=== PATIENT | male | born 1955 | race Caucasian/White ===

== ENCOUNTER → 2020-07-09 09:58 | Outpatient (BNVA) | payer MEDICARE, BC, SELFPAY | PROVIDERS: PCP Internal Medicine; Visit Provider Surgery | DX: K60.2 Anal fissure, unspecified (principal) | CPT/HCPCS: 99212; 99213 ==

== ENCOUNTER → 2020-11-14 14:03 | Outpatient (BNVA) | payer MEDICARE, BC, SELFPAY | PROVIDERS: PCP Internal Medicine; Visit Provider Surgery | DX: K64.9 Unspecified hemorrhoids (principal) | CPT/HCPCS: 46600; 99212 ==

== ENCOUNTER → 2021-01-03 14:50 | Outpatient (BNVA) | payer MEDICARE, BC, SELFPAY | PROVIDERS: PCP Internal Medicine; Visit Provider Urology | DX: N41.9 Inflammatory disease of prostate, unspecified (principal); N45.1 Epididymitis | CPT/HCPCS: 81002; 99212 ==

== ENCOUNTER → 2021-03-27 12:52 | Outpatient (BNVA) | payer MEDICARE, BC, SELFPAY | PROVIDERS: PCP Internal Medicine; Visit Provider Urology | DX: N40.1 Benign prostatic hyperplasia with lower urinary tract symptoms (principal); N13.8 Other obstructive and reflux uropathy | CPT/HCPCS: 99212 ==

== ENCOUNTER 2021-05-27 10:06 | Outpatient (REF) | payer MEDICARE, BC, SELFPAY ==
[2021-05-27 11:07] LABS: Hematocrit 42.2 % (42-52); Hemoglobin 13.2 g/dl (14.0-18.0); Mean Corpuscular HGB Conc 31.3 g/dl (31.0-36.0); Mean Corpuscular Volume 89.4 fL (80-98); Mean Platelet Volume 9.9 fL (9.4-12.4); Platelet Count 215 X10*3/uL (160-400); Red Blood Count 4.72 X10*6/uL (4.60-5.80); White Blood Count 7.3 X10*3/uL (4.8-10.8)
[2021-05-27 12:47] LABS: Prostate Specific Antigen 0.18 ng/mL (<0.05-4.0)
[2021-05-30 16:56] LABS: Testosterone, Total 87 ng/dL (250-1100)
== END 2021-05-27 10:07 | disposition home or self-care (01) ==
LOC: HO.LAB 10:06
PROVIDERS: PCP Internal Medicine; Visit Provider Urology
DX: Z12.5 Encounter for screening for malignant neoplasm of prostate (principal); N13.8 Other obstructive and reflux uropathy; N40.1 Benign prostatic hyperplasia with lower urinary tract symptoms; E29.1 Testicular hypofunction
CPT/HCPCS: 36415; 84153; 84403; 85027

== ENCOUNTER → 2021-07-15 11:58 | Outpatient (BNVA) | payer MEDICARE, BC, SELFPAY | PROVIDERS: PCP Internal Medicine; Visit Provider Urology | DX: Z13.89 Encounter for screening for other disorder (principal) | CPT/HCPCS: 99212 ==

== ENCOUNTER 2022-01-13 16:42 | Emergency (ER) | payer MEDICARE, BC, SELFPAY ==
[2022-01-13 16:50] VITALS: BP 139/78; PULSE 78; RESP 16; TEMP 36.4; O2SAT 95; BMI 33.9
[2022-01-13 17:08] LABS: MANUAL DIFF FLAG NO
[2022-01-13 17:16] LABS: Basophils Percent Auto 0.5 % (0-2); Eosinophils Absolute Auto 0.1 X10*3/uL (0.0-0.4); Eosinophils Percent Auto 1.8 % (0-4); Hematocrit 44.4 % (42.0-52.0); Imm Gran Abs Auto 0.11 X10*3/uL (0.00-0.03); Imm Gran Pct Auto 1.4 % (0.0-0.4); Lymphocytes Absolute Auto 2.2 X10*3/uL (1.2-4.9); Lymphocytes Percent Auto 29.2 % (20-40); Mean Corpuscular HGB Conc 31.5 g/dl (31.0-36.0); Mean Corpuscular Hemoglobin 27.7 pg (27.0-33.0); Mean Corpuscular Volume 87.7 fL (80.0-98.0); Mean Platelet Volume 9.5 fL (9.4-12.4); Monocytes Absolute Auto 0.6 X10*3/uL (0.1-1.2); Monocytes Percent Auto 7.7 % (2-11); Neutrophils Absolute Auto 4.6 x10*3/uL (2.0-8.3); Neutrophils Percent Auto 59.4 % (45-73); Platelet Count 232 X10*3/uL (160-400); Red Blood Count 5.06 X10*6/uL (4.60-5.80); Red Cell Distribution Width 13.8 % (11.0-16.0); White Blood Count 7.7 X10*3/uL (4.8-10.8)
[2022-01-13 17:19] LABS: Appearance Urine CLEAR; Color Urine YELLOW; Glucose Urine UA NEG (NEG); Leukocyte Esterase Urine 3+ (NEG); Nitrite Urine NEG (NEG); PH 6.5 (5.0-8.0); Specific Gravity - Urine 1.015 (1.005-1.025); UACC Culture Trigger YES; Urine Blood 2+ (NEG); Urine Ketones NEG (NEG); Urine Protein 1+ MG/DL (NEG-TRACE)
[2022-01-13 17:23] LABS: Anion Gap 12 (12-20); Blood Urea Nitrogen 17 mg/dL (9-16); Calcium 9.6 mg/dL (8.4-10.2); Carbon Dioxide 27 mmol/L (22-29); Chloride 106 mmol/L (96-108); Creatinine Clr Calc Pharmacy 85.1; Estimated Glomerular Filt Rate > 60; Glucose Random 133 mg/dL (60-115); Potassium 4.4 mmol/L (3.3-5.1); Sodium 141 mmol/L (135-145)
[2022-01-13 17:41] LABS: Bacteria Urine 3+ /LPF; Squamous Epithelial Cell Urine TRACE /LPF; WBC Urine 30-49 /HPF (0-4)
== END 2022-01-13 20:40 | disposition left against medical advice (07) ==
PROVIDERS: Emergency Provider Emergency Medicine; PCP Internal Medicine
DX: N23 Unspecified renal colic (principal); R30.0 Dysuria; Z79.899 Other long term (current) drug therapy
CPT/HCPCS: 36415; 80048; 81001; 85025; 87086; 99283

== ENCOUNTER 2023-07-15 12:44 | Outpatient (REF) | payer MEDICARE, BC, SELFPAY ==
--- NOTE | ~2023-07-15 | XR_ITS ---
EXAMINATION: XR SHOULDER, LEFT CLINICAL INFORMATION: Shoulder pain COMPARISON: None available. TECHNIQUE: AP external rotation, Grashey, scapular Y, and axillary views of the left shoulder. FINDINGS: Acromioclavicular joint space narrowing. Glenohumeral joint is maintained. No acute fracture or dislocation. Old left posterolateral rib fracture. XR/XR shoulder LT min 2V IMPRESSION: No acute bony pathology left shoulder.
== END 2023-07-15 12:45 | disposition home or self-care (01) ==
LOC: HO.HOSX 12:44
PROVIDERS: PCP Internal Medicine; Visit Provider Orthopaedic Surgery
DX: M25.512 Pain in left shoulder (principal); M75.102 Unspecified rotator cuff tear or rupture of left shoulder, not specified as traumatic
CPT/HCPCS: 20610; 73030; J1040

== ENCOUNTER 2023-07-15 13:27 | Outpatient (AMB) | payer MEDICARE, BC, SELFPAY ==
--- NOTE | 2023-07-15 13:27 | A.OFFVIS_ITS ---
Intake Vital Signs 07/15/23 13:28 Height 6 ft Weight 245 lb BMI 33.2 Intake Visit Reasons: OV - shoulder pain Intake Note: Manpreet is a 68 year old right hand dominant male who presents today with complaints of left shoulder pain. No injury but explains that this pain onset after weedwacking. Pain increased with all reaching motions, he has increased pain with more movement and he has been restricting motion due to pain. denies numbness and tingling. He is taking oxycodone but this is for kidney stones so he does not find much releif with. Injections done in the past in the right shoulder which were very helpful Allergies Iodinated Contrast Media [IV DYE, IODINE CONTAINING] Allergy (Intermediate, Verified 07/15/21 11:59) HIVES levofloxacin [From LEVAQUIN] Allergy (Intermediate, Verified 07/15/21 11:59) RASH diazepam [From VALIUM] Allergy (Mild, Verified 07/15/21 11:59) RASH Penicillins [PENICILLINS] Allergy (Mild, Verified 07/15/21 11:59) RASH amoxicillin Allergy (Unknown, Verified 07/15/21 11:59) rash bee pollen [BEE STINGS] Allergy (Unknown, Verified 07/15/21 11:59) HIVES penicillin V Allergy (Unknown, Verified 07/15/21 11:59) rash codeine [CODEINE] Adverse Reaction (Severe, Verified 07/15/21 11:59) HEADACHES cipro Allergy (Unknown, Uncoded 05/30/20 00:00) vmiting Codeine Phosphate Allergy (Unknown, Uncoded 05/30/20 00:00) severe headach IVP dye Allergy (Unknown, Uncoded 11/14/20 14:11) Unknown HPI OV - shoulder pain HPI Details 68-year-old right hand dominant male who presents in the office today, as a new patient, for an evaluation of left shoulder pain. The patient does not recall any injury to the left shoulder, but states the pain began after weed- whacking. He reports the pain increases with all reaching motions and excessive movement. He claims to have limited ROM due to pain. He denies numbness or tingling. He reports he is taking oxycodone for his kidney stones and does not find much relief from the left shoulder pain with this medication. [facility] Medical History Bleeding hemorrhoids Chronic back pain Fibromyalgia Hypercholesterolemia Hypogonadism Surgical History History of appendectomy History of cholecystectomy History of hemorrhoidectomy History of total right knee replacement Family History Mother History of skin cancer Social History Alcohol intake: never Review of Systems Const All systems reviewed & are unremarkable except as noted in HPI and below Physical Exam Vital Signs: BMI result Body Mass Index 33.2 Const General: cooperative and no acute distress Orientation/consciousness: patient oriented x3 Resp Effort & Inspection: normal respiratory effort and able to speak in complete sentences Cardio Peripheral pulses: Peripheral pulses 2+ throughout Skin General skin exam: no rashes or lesions noted Neuro General: patient oriented x3 Extrem Other: Left shoulder: Full shoulder ROM in all planes. Pain with cross-body reach. 4/5 strength with empty can. Negative drop arm. NVI. Office Procedures Joint Injection/Drain Joint Injection/Drain Primary Site: left shoulder Prep: site was prepped using aseptic technique, ethochloride spray was applied and injection warnings given Injected: 80 mg of, DepoMedrol, with 8 mL of (2% plain lido ) and in the subcromial space Approach Used: posterolateral Procedure: The patient tolerated the procedure well, but had some pain with the injection and there was some relief with the local anesthesia Coding 99062 - Large joint Procedure code (CPT) selection complete Results Reviewed Results Reviewed: 07/15/23 13:39 Lidocaine HCl 2 % MPF [Xylocaine 2 % MPF] 5 ml .ROUTE .STK-MED ONE methylPREDNISolone acetate [DEPO-MedroL] 80 mg .ROUTE .STK-MED ONE Assessment & Plan Assessment & Plan (1) Painful arc syndrome of left shoulder: Code(s): M75.102 - Unspecified rotator cuff tear or rupture of left shoulder, not specified as traumatic Plan Mr. Gray is a 68-year-old right hand dominant male who presents in the office today, as a new patient, for an evaluation of left shoulder pain. The patient does not recall any injury to the left shoulder, but states the pain began after weed-whacking. He reports the pain increases with all reaching motions and excessive movement. He claims to have limited ROM due to pain. He denies numbness or tingling. He reports he is taking oxycodone for his kidney stones and does not find much relief from the left shoulder pain with this medication. The patient was offered a cortisone injection in the left shoulder with 80 mg of DepoMedrol. The patient was explained the risk, benefits, and alternatives to receiving this injection. After receiving consent for the injection, the patient had the procedure done while in office today. The patient tolerated the procedure well with no complications. Follow up will be PRN, or sooner if needed. X-rays of the left shoulder obtained while in the office today and reviewed by me, Prabha Franco PA-C, revealed no evidence of acute fracture or dislocation. Orders: Orders XR shoulder LT min 2V Today M25.519 - Pain in unspecified shoulder Patient Instructions: Scribed for Prabha Franco PA-C by [facility] medical and lab director, on 06/29/2023 at 1:33 pm, EST. Coding Level of Care Code New Pt Level 4 (71192) Diagnoses Painful arc syndrome of left shoulder M75.102 CPT Codes Coding - 12324 Large joint: 16847 - Large joint ([id number])
[2023-07-15 13:28] VITALS: BMI 33.2
== END 2023-07-15 13:50 | disposition home or self-care (01) ==
LOC: HO.HOS 13:27
PROVIDERS: PCP Internal Medicine; Visit Provider Physician Assistant
DX: M75.102 Unspecified rotator cuff tear or rupture of left shoulder, not specified as traumatic (principal)
CPT/HCPCS: 20610; 99204

== ENCOUNTER 2023-10-04 17:29 | Outpatient (REF) | payer MEDICARE, BC, SELFPAY ==
--- NOTE | ~2023-10-04 | MR_ITS ---
EXAMINATION: MR SHOULDER WITHOUT CONTRAST, LEFT CLINICAL INFORMATION: Left shoulder pain and numbness. Painful arc syndrome. Evaluate for a rotator cuff tendon tear. COMPARISON: Left shoulder radiographs dated 07/15/2023. TECHNIQUE: MRI of the shoulder was performed using routine sequences on a high-field scanner. FINDINGS: ROTATOR CUFF: Mild supraspinatus tendinosis with anterior bursal surface partial tearing measuring 1.4 x 0.8 cm (AP x ML). The articular surface tendon fibers remain intact. No full-thickness rotator cuff tendon tear. Mild distal subscapularis tendinosis. No muscle atrophy or fatty infiltration. BICEPS: Intact. CORACOACROMIAL ARCH: The undersurface of the acromion is curved with no subacromial spur. Minimal acromioclavicular arthrosis. Trace fluid and edema within the subacromial-subdeltoid bursa, consistent with minimal bursitis. LABRUM/CAPSULE: No labral tear. Intact joint capsule. GLENOHUMERAL JOINT/MARROW: Posteroinferior glenoid articular cartilage thinning with areas of full-thickness fissuring and underlying subchondral cystic change. Tiny marginal osteophytes. MR/MR shoulder LT wo con IMPRESSION: 1. Mild supraspinatus tendinosis with anterior bursal surface partial tearing measuring 1.4 x 0.8 cm. Mild distal subscapularis tendinosis. No full-thickness rotator cuff tendon tear. 2. Minimal acromioclavicular arthrosis. Minimal subacromial-subdeltoid bursitis. 3. Mild glenohumeral osteoarthritis.
== END 2023-10-04 17:30 | disposition home or self-care (01) ==
LOC: HO.MRI 17:29
PROVIDERS: PCP Internal Medicine; Visit Provider Physician Assistant
DX: M75.102 Unspecified rotator cuff tear or rupture of left shoulder, not specified as traumatic (principal)
CPT/HCPCS: 73221

== ENCOUNTER 2023-10-18 11:19 | Outpatient (AMB) | payer MEDICARE, BC, SELFPAY ==
--- NOTE | 2023-10-18 11:24 | A.OFFVIS_ITS ---
Intake Intake Visit Reasons: OV-Right shoulder MRI Review Intake Note: Manpreet is a 68 year old right hand dominant male who presents today for an MRI review of his LEFT shoulder Allergies Iodinated Contrast Media [IV DYE, IODINE CONTAINING] Allergy (Intermediate, Verified 07/15/21 11:59) HIVES levofloxacin [From LEVAQUIN] Allergy (Intermediate, Verified 07/15/21 11:59) RASH diazepam [From VALIUM] Allergy (Mild, Verified 07/15/21 11:59) RASH Penicillins [PENICILLINS] Allergy (Mild, Verified 07/15/21 11:59) RASH amoxicillin Allergy (Unknown, Verified 07/15/21 11:59) rash bee pollen [BEE STINGS] Allergy (Unknown, Verified 07/15/21 11:59) HIVES penicillin V Allergy (Unknown, Verified 07/15/21 11:59) rash codeine [CODEINE] Adverse Reaction (Severe, Verified 07/15/21 11:59) HEADACHES cipro Allergy (Unknown, Uncoded 05/30/20 00:00) vmiting Codeine Phosphate Allergy (Unknown, Uncoded 05/30/20 00:00) severe headach IVP dye Allergy (Unknown, Uncoded 11/14/20 14:11) Unknown HPI OV-Right shoulder MRI Review HPI Details Manpreet is a 68 year old man who presents for an MRI review of his left shoulder pain. He is concerned he will need surgery. He feels limited in his ADLs by his pain, and finds no relief from Oxycodone, which he takes for his Kidneys. [facility] Medical History Bleeding hemorrhoids Chronic back pain Fibromyalgia Hypercholesterolemia Hypogonadism Surgical History History of appendectomy History of cholecystectomy History of hemorrhoidectomy History of total right knee replacement Family History Mother History of skin cancer Social History Alcohol intake: never Review of Systems Const All systems reviewed & are unremarkable except as noted in HPI and below Physical Exam Const General: no acute distress, alert and awake Orientation/consciousness: patient oriented x3 HEENT Head: Yes normocephalic and Yes atraumatic Eyes EOM: EOMs intact bilaterally Resp Effort & Inspection: normal respiratory effort and able to speak in complete sentences Cardio Jugular venous distension: no JVD Skin General skin exam: turgor normal Rashes: no rashes Neuro General: patient oriented x3 Extrem Other: negative emtpy can Markedly + impingement with Chau and Neer 35 of of ER hunched over with gaurding Psych Appearance: grossly normal Affect: normal affect Attitude: cooperative Office Procedures Joint Injection/Drain Joint Injection/Drain Details: Injected 1 mL of Decadron and 3 mL 1% lidocaine and 3 mL of 0.25% Marcaine. Site was prepped using aseptic technique. Patient tolerated the procedure well. Primary Site: left shoulder Approach Used: posterolateral Coding - Large joint Procedure code (CPT) selection complete Results Reviewed Results Reviewed: I personally reviewed the MR images. Mild supraspinatus tendinosis with anterior bursal surface partial tearing measuring 1.4 x 0.8 cm. Mild distal subscapularis tendinosis. No full-thickness rotator cuff tendon tear. 2. Minimal acromioclavicular arthrosis. Minimal subacromial-subdeltoid bursitis. 3. Mild glenohumeral osteoarthritis. Assessment & Plan Assessment & Plan (1) Painful arc syndrome of left shoulder: Code(s): M75.102 - Unspecified rotator cuff tear or rupture of left shoulder, not specified as traumatic Plan: Painful arc syndrome with gaurding and c/b chronic pain. Injected left shoulder and recommend PT. Plan Prepared for Dwight Mckenzie MD by Julien Banks, [facility], on 10/18/23 at 11:30 AM, EST. Orders: Orders PT Evaluation and Treatment 10/18/23 M75.102 - Unspecified rotator cuff tear or rupture of left shoulder, not specified as traumatic Coding Level of Care Code Est Pt Level 3 (26230) Diagnoses Painful arc syndrome of left shoulder M75.102 CPT Codes Coding - Large joint: 08376 - Large joint ([id number])
== END 2023-10-18 12:13 | disposition home or self-care (01) ==
PROVIDERS: PCP Internal Medicine; Visit Provider Orthopaedic Surgery
DX: M75.102 Unspecified rotator cuff tear or rupture of left shoulder, not specified as traumatic (principal)
CPT/HCPCS: 20610; 99213

== ENCOUNTER → 2023-10-18 11:19 | Outpatient (BNVA) | payer MEDICARE, BC, SELFPAY | PROVIDERS: PCP Internal Medicine; Visit Provider Orthopaedic Surgery | DX: M75.102 Unspecified rotator cuff tear or rupture of left shoulder, not specified as traumatic (principal) | CPT/HCPCS: 20610; 99212; J0665; J1100 ==

== ENCOUNTER 2023-10-28 11:00 | Outpatient (RCR) | payer MEDICARE, BC, SELFPAY ==
--- NOTE | 2023-11-09 11:26 | MHC.PT.DC ---
[facility] [place] Office [place] Office [place] Office [address] Susana Farr [address] [phone] F: [phone] F: [phone] F: [phone] F: [phone] Physical Therapy Discharge Report Diagnosis: PAINFUL ARC SYNDROME LEFT SHOULDER (KP) Date of Surgery: NA Date of Evaluation: 10/26/23 Date of Discharge: 11/01/23 Treatments to Date: 2 Cancellations to Date: 0 No Shows to Date: 0 Discharge Status: Patient Elected to Stop Recommend MD Follow-up Discharge Summary: Manpreet felt he was unable to try any ex's so instructed to perform ice regiment at home. He was encouraged to contact MD regarding possible next steps for pain control. He then contacted our office and self-DCed Electronically signed by: Eva Waldrop PT DPT Please sign and return to therapist. Thank you for your referral.
== END 2023-11-09 11:27 | disposition home or self-care (01) ==
LOC: HO.PT 11:00
PROVIDERS: PCP Internal Medicine; Visit Provider Orthopaedic Surgery
DX: M75.102 Unspecified rotator cuff tear or rupture of left shoulder, not specified as traumatic (principal)
CPT/HCPCS: 97110; 97161; 97535